=== PATIENT | female | born 1985 ===

== ENCOUNTER 2018-03-22 23:45 | Emergency (ER) | payer SELFPAY ==
[2018-03-23 00:06] VITALS: O2SAT 100
[2018-03-23] MEDS ORDERED: Morphine 4 MG/ML VIAL IV ONE ×2 (00:31→01:48)
--- NOTE | 2018-03-23 00:34 | ED PDOC ---
HPI: Abdomen Time Seen by Provider: 03/23/18 00:20 Chief Complaint (Nursing): Abdominal Pain Chief Complaint (Provider): abdominal pain History Per: Patient History/Exam Limitations: no limitations Onset/Duration Of Symptoms: Hrs (4), Waxing/Waning Current Symptoms Are (Timing): Still Present Location Of Pain/Discomfort: RLQ Additional Complaint(s): 32 y/o female presents for evaluation of right-sided abdominal pain x 4 hours. Patient admits to similar pain in past when she was told she has ovarian cysts. Denies fever, nausea/vomiting, chest pain, shortness of breath, palpitations, changes in bowel movements, urinary symptoms. No medication taken for relief thus far Past Medical History Reviewed: Historical Data, Nursing Documentation, Vital Signs Vital Signs: Last Vital Signs Temp 98.7 F 03/23/18 00:04 Pulse 82 03/23/18 00:04 Resp 16 03/23/18 00:04 BP 133/87 03/23/18 00:04 Pulse Ox 100 03/23/18 00:04 - Medical History PMH: No Chronic Diseases - Surgical History Surgical History: No Surg Hx - Family History Family History: States: No Known Family Hx - Living Arrangements Living Arrangements: With Family - Home Medications Home Medications: Ambulatory Orders Medication Instructions Recorded Polyethylene Glycol 3350 [Miralax] 7 gm PO DAILY PRN 5 Days ml 03/23/18 - Allergies Allergies/Adverse Reactions: Allergies Allergy/AdvReac Type Severity Reaction Status Date / Time ibuprofen Allergy RASH Verified 03/23/18 00:04 Review of Systems ROS Statement: Except As Marked, All Systems Reviewed And Found Negative Gastrointestinal: Positive for: Abdominal Pain Physical Exam - Reviewed Nursing Documentation Reviewed: Yes Vital Signs Reviewed: Yes - Physical Exam Appears: Positive for: Well, Non-toxic, Uncomfortable Head Exam: Positive for: ATRAUMATIC, NORMAL INSPECTION, NORMOCEPHALIC Skin: Positive for: Normal Color Eye Exam: Positive for: Normal appearance ENT: Positive for: Normal ENT Inspection Cardiovascular/Chest: Positive for: Regular Rate, Rhythm Respiratory: Positive for: Normal Breath Sounds Gastrointestinal/Abdominal: Positive for: Bowel Sounds, Soft, Tenderness (rlq, ruq, right flank, suprapubic). Negative for: Rebound Back: Positive for: Normal Inspection Extremity: Positive for: Normal ROM Neurologic/Psych: Positive for: Alert, Oriented (x3) - Laboratory Results Result Diagrams: 03/23/18 00:37 03/23/18 00:37 - ECG O2 Sat by Pulse Oximetry: 100 - Progress ED Course And Treament: -upreg -udip -cbc -cmp -urinalysis -TV u/s -IV morphine Ultrasound transvaginal. Indication: Right-sided abdominal/pelvic pain. Technique: Real-time ultrasound images were obtained. Findings: Uterus is normal in size measuring 6.2x4.9x4.6 cm. Unremarkable intrauterine device is noted. The right ovary is normal measuring 3x2x2.3 cm. Left ovary measures 3.4x2.4x1.9 cm with a small cyst measuring 2.3 cm. Impression: Unremarkable intrauterine device. Left ovarian cyst, simple. No evidence of ovarian torsion CT SCAN OF THE ABDOMEN AND PELVIS WITH CONTRAST. CLINICAL HISTORY: Right-sided abdominal pain. TECHNIQUE: Multiple axial and coronal CT images were obtained through the abdomen and pelvis after administration of intravenous contrast material. COMMENTS: The liver is moderately enlarged with decreased attenuation without mass or defect. There is no intra or extrahepatic biliary ductal dilatation. The spleen is normal. The gallbladder is within normal limits. The pancreas is of normal contour and attenuation characteristics. There is no evidence of adrenal mass. Uncomplicated colonic diverticulosis. Mild amount of fecal residue in the colon. Both kidneys demonstrate prompt and equal nephrograms. The kidneys are normal in size, shape and configuration. There is no evidence of renal or ureteral mass. No renal or ureteral calculi are identified. There is no hydroureter or hydronephrosis. No evidence for appendicitis. There is no bowel wall thickening. No evidence for small or large bowel obstruction. There is no evidence of abdominal ascites or lymphadenopathy. Mild diffuse thickening of the bladder. There is no evidence of intrinsic or extrinsic bladder mass. There is no pelvic ascites or lymphadenopathy. Intrauterine device is unremarkable. Bilateral basilar atelectatic pulmonary changes. Images of the lung bases show no evidence of pleural or parenchymal mass. There are no pleural effusions. The bony structures are free of lytic or blastic lesions. IMPRESSION: Hepatomegaly with hepatic steatosis. No evidence of acute abdominal or pelvic pathology. Unremarkable intrauterine device. Thickened bladder, probably secondary to underdistention Patient states pain improved on re-eval Patient educated on findings, discharged with rx Miralax. Advised Tylenol PRN pain Follow up PMD within 2-3 days. Return precautions given Disposition - Clinical Impression Clinical Impression: Abdominal pain, Left ovarian cyst, Constipated - Patient ED Disposition Is Patient to be Admitted: No Counseled Patient/Family Regarding: Studies Performed, Diagnosis, Need For Followup, Rx Given - Disposition Referrals: [facility] [Outside] Disposition: Routine/Home Disposition Time: 03:39 Condition: IMPROVED Prescriptions: Polyethylene Glycol 3350 [Miralax] 7 gm PO DAILY PRN 5 Days ml PRN Reason: Constipation Instructions: Acute Abdomen (Belly Pain), Constipation in Adults, Ovarian Cysts Forms: [employer] [facility] (Bulgarian)
[2018-03-23 00:49] LABS: BASO # 0.1 K/uL (0.0-0.2); EOS # 0.3 K/uL (0.0-0.7); EOS % 2.3 % (0.0-4.0); HEMOGLOBIN 11.2 g/dL (12.0-16.0); LYMPH # 3.1 K/uL (1.0-4.3); MEAN CELL VOLUME 83.7 fl (81.0-99.0); MEAN CORPUSCULAR HEMOGLOBIN 26.3 pg (27.0-31.0); MEAN CORPUSCULAR HGB CONC 31.5 g/dL (33.0-37.0); MEAN PLATELET VOLUME 9.2 fl (7.2-11.7); MONO % 7.3 % (0.0-10.0); NEUT # 8.9 K/uL (1.8-7.0); NEUT % 66.4 % (50.0-75.0); NRBC % 0.2 % (0.0-0.0); RBC 4.25 Mil/uL (3.80-5.20); RED CELL DISTRIBUTION WIDTH 16.3 % (11.5-14.5); WHITE BLOOD COUNT 13.4 K/uL (4.8-10.8)
[2018-03-23 01:01] LABS: ALB/GLOB RATIO 0.9 (1.0-2.1); ALBUMIN 3.8 g/dL (3.5-5.0); ALT/SGPT 52 U/L (9-52); AST/SGOT 35 U/L (14-36); BLOOD UREA NITROGEN 11 mg/dl (7-17); CALCIUM 9.1 mg/dL (8.4-10.2); GFR NON-AFRICAN AMERICAN > 60
[2018-03-23] MEDS ORDERED: Sodium Chloride 0.9% 1,000 ML IV STA (01:29)
[2018-03-23] MEDS ORDERED: Morphine 4 MG/ML VIAL ONE (01:51)
[2018-03-23] MEDS ORDERED: Iohexol 300 100 ML IJ ONE (02:21)
[2018-03-23] MEDS ORDERED: Sodium Chloride 0.9% 50 ML IV ONE (02:21)
[2018-03-23 03:28] LABS: SQUAMOUS EPITHIAL 1 /hpf (0-5); URINE BILIRUBIN NEGATIVE (NEGATIVE); URINE BLOOD NEGATIVE (NEGATIVE); URINE CLARITY SLIGHTY-CLOUDY (Clear); URINE COLOR YELLOW (YELLOW); URINE GLUCOSE (UA) NEG (NEGATIVE); URINE LEUKOCYTE ESTERASE NEG Leu/uL (Negative); URINE PROTEIN NEGATIVE (NEGATIVE); URINE UROBILINOGEN 0.2-1.0 mg/dL (0.2-1.0)
[2018-03-23 07:00] VITALS: BP 122/78; PULSE 86; RESP 18; TEMP 98.2
--- NOTE | 2018-03-23 11:14 | US ---
Date of service: 03/23/2018 HISTORY: Right pelvic pain. LMP 03/19/2018. IUD present since 2015. COMPARISON: None available. TECHNIQUE: Transvaginal only. Real -time technique with 2D, duplex and color Doppler FINDINGS: UTERUS: Measures 4.7 x 6.2 x 7.9 cm. Normal in size and appearance. No fibroid or other mass lesion seen. ENDOMETRIUM: Accurate measurement of endometrial thickness is not possible based on centrally situated IUD. Unremarkable. Intrauterine contraceptive device (IUD) identified in satisfactory position centrally within the endometrial canal. CERVIX: No cervical abnormality identified. RIGHT OVARY: Measures 2 x 2.3 x 3 cm. No solid mass. Normal flow. Multiple subcentimeter follicles. LEFT OVARY: Measures 0.9 x 2.4 x 3.4 cm. No solid mass. Normal flow. Adnexal cyst measures 1.8 x 2.3 cm. FREE FLUID: No significant free fluid noted. OTHER FINDINGS: None. IMPRESSION: Satisfactory position of intrauterine contraceptive device. Additional benign and/or incidental findings described above. Concordant findings (preliminary report) provided by [facility].
--- NOTE | 2018-03-23 11:21 | CT ---
Date of service: 03/23/2018 PROCEDURE: CT Abdomen and Pelvis with contrast HISTORY: right-sided abdominal pain COMPARISON: March 23, 2018 pelvic ultrasound reported separately. TECHNIQUE: Intravenous contrast dose: 90 cc Omnipaque 300. Radiation dose: Total exam DLP = 822.59 mGy-cm. This CT exam was performed using one or more of the following dose reduction techniques: Automated exposure control, adjustment of the mA and/or kV according to patient size, and/or use of iterative reconstruction technique. FINDINGS: LOWER THORAX: Unremarkable. LIVER: Hepatomegaly. Profound hepatic steatosis. No focal masses. No intrahepatic bile duct dilatation or perihepatic ascites. GALLBLADDER AND BILE DUCTS: Unremarkable. PANCREAS: Unremarkable. No gross lesion or ductal dilatation. SPLEEN: Unremarkable. ADRENALS: Unremarkable. No mass. KIDNEYS AND URETERS: Unremarkable. No hydronephrosis. No solid mass. VASCULATURE: Unremarkable. No aortic aneurysm. No atherosclerotic calcification or mural plaque present. BOWEL: Unremarkable. No obstruction. No gross mural thickening. APPENDIX: Normal appendix. PERITONEUM: Unremarkable. No free fluid. No free air. LYMPH NODES: Unremarkable. No enlarged lymph nodes. BLADDER: Unremarkable. REPRODUCTIVE: Intrauterine contraceptive device (IUD) identified BONES: No acute fracture. OTHER FINDINGS: None. IMPRESSION: No acute findings related to/ accounting for the clinical presentation. Additional benign and/or incidental findings described above. Concordant results (preliminary interpretation) provided by [facility]. Procedure Completed: 02:49. Preliminary Report: Dictated and Authenticated: 03:05. Final Interpretation: 11:17. March 23, 2018
== END 2018-03-23 03:45 | disposition home or self-care (01) ==
LOC: H.ER 23:45
DX: R10.31 Right lower quadrant pain (principal); K59.00 Constipation, unspecified; N83.202 Unspecified ovarian cyst, left side; K76.0 Fatty (change of) liver, not elsewhere classified
CPT/HCPCS: 74177; 76830; 80053; 81003; 81025; 85025; 96360; 99283; J2270; J7030; Q9967